=== PATIENT | female | born 1970 | race Caucasian/White ===

== ENCOUNTER → 2016-11-04 | Outpatient (CLI) | payer OTHER | LOC: FIMAGING 13:49 | PROVIDERS: ATTEND Obstetrics & Gynecology | DX: Z12.31 Encounter for screening mammogram for malignant neoplasm of breast (principal) | CPT/HCPCS: G0202 ==

== ENCOUNTER → 2016-11-11 | Outpatient (CLI) | payer OTHER | LOC: FIMAGING 13:28 | PROVIDERS: ATTEND Obstetrics & Gynecology | DX: N60.01 Solitary cyst of right breast (principal) ==

== ENCOUNTER 2017-03-24 23:20 | Emergency (ER) | payer OTHER ==
[2017-03-25 00:09] LABS: BACTERIA 1+ /hpf (NONE SEEN); WBC,URINE 25-50 /hpf (0-3)
--- NOTE | 2017-03-25 00:21 | EDPHY ---
H & P Stated Complaint: uti sx Time Seen by Provider: 03/24/17 23:38 HPI/ROS: HPI The patient presents with several hours of dysuria associated with hematuria. She has a history of UTIs, though last had 1 years ago. She did have of sexual intercourse a few days ago. She started taking azo with some improvement in her symptoms. She was concerned about the hematuria. She does not have any flank pain, fever, nausea or vomiting.. REVIEW OF SYSTEMS Constitutional: No fever, no chills. Gastrointestinal: No abdominal pain, no vomiting. Genitourinary: Positive for hematuria. Musculoskeletal: No back pain. Skin: No rashes. Neurological: No headache. PMHx: Healthy PHYSICAL General Appearance: Alert, no distress Eyes: Pupils equal and round no pallor or injection ENT, Mouth: Mucous membranes moist Respiratory: There are no retractions, lungs are clear to auscultation Cardiovascular: Regular rate and rhythm Gastrointestinal: Abdomen is soft and non-tender, no masses, bowel sounds normal Back: There is no flank tenderness Neurological: A&O, moves all extremities Skin: Warm and dry, no rashes Musculoskeletal: Neck is supple non tender Extremities: symmetrical, full range of motion Psychiatric: Patient is oriented X 3, there is no agitation Source: Patient Exam Limitations: No limitations - Personal History LMP (Females 10-55): 8-14 Days Ago Current Tetanus/Diphtheria Vaccine: Unsure Current Tetanus Diphtheria and Acellular Pertussis (TDAP): Unsure - Medical/Surgical History Hx Asthma: No Hx Chronic Respiratory Disease: No Hx Diabetes: No Hx Cardiac Disease: No Hx Renal Disease: No Hx Cirrhosis: No Hx Alcoholism: No Hx HIV/AIDS: No Hx Splenectomy or Spleen Trauma: No - Social History Smoking Status: Never smoked Constitutional: Initial Vital Signs Temperature (C) 36.4 C 03/24/17 23:23 Heart Rate 95 03/24/17 23:23 Respiratory Rate 18 03/24/17 23:23 Blood Pressure 117/77 03/24/17 23:23 O2 Sat (%) 98 03/24/17 23:23 O2 Delivery Mode Room Air Allergies/Adverse Reactions: No Known Allergies Allergy (Unverified 03/24/17 23:23) Home Medications: Medication Instructions Recorded Multivitamin 03/24/17 Nitrofurantoin Monohyd/M-Cryst 100 mg PO BID 5 Days capsule 03/25/17 [Macrobid 100 mg Capsule] Medical Decision Making Differential Diagnosis: 46-year-old female presents with several hours of dysuria and hematuria. UA performed here demonstrates urinary tract infection. I feel she likely has hemorrhagic cystitis. I have considered ureterolithiasis, however the patient has no flank pain or vomiting making this less likely. She will be discharged with Macrobid, urine culture has been sent, I have advised her to continue taking her azo. - Data Points Laboratory Results: 03/24/17 23:30 Urine RBC 5-10 /hpf H /hpf (0-3) Urine WBC 25-50 /hpf H /hpf (0-3) Ur Epithelial Cells TRACE /lpf /lpf (NONE-1+) Urine Bacteria 1+ /hpf H /hpf (NONE SEEN) Departure - Departure Disposition: Home, Routine, Self-Care Clinical Impression: Urinary tract infection Qualifiers: Urinary tract infection type: acute cystitis Hematuria presence: with hematuria Qualified Code(s): N30.01 - Acute cystitis with hematuria Condition: Good Instructions: Nitrofurantoin Combination (By mouth), Urinary Tract Infection in Women (ED) Additional Instructions: Please return to the emergency department if your worse in any way. Referrals: NONE *PRIMARY CARE P,. [Primary Care Provider] - As per Instructions Prescriptions: Nitrofurantoin Monohyd/M-Cryst [Macrobid 100 mg Capsule] 100 mg PO BID 5 Days capsule
[2017-03-25] MEDS ORDERED: NITROFURANTOIN 100MG PREPACK#2 BTL TAKEHOME ONE (00:27)
[2017-03-25] MEDS ORDERED: NITROFURANTOIN MACROBID 100 MG CAP PO ONE (00:27)
[2017-03-25 00:41] VITALS: BP 119/72; PULSE 80; RESP 16; TEMP 98.2; O2SAT 96
== END 2017-03-25 00:40 | disposition home or self-care (01) ==
DX: N30.01 Acute cystitis with hematuria (principal); B96.20 Unspecified Escherichia coli [E. coli] as the cause of diseases classified elsewhere